=== PATIENT | male | born 1965 | race Caucasian/White ===

== ENCOUNTER 2021-10-05 23:21 | Emergency (ER) | payer MEDICARE, MEDICAID, SELFPAY ==
[2021-10-05 23:23] VITALS: BP 165/80; PULSE 89; RESP 22; TEMP 36.4; O2SAT 99; BMI 23.3
--- NOTE | 2021-10-06 00:05 | EX.ED.SAOD ---
HPI History of Present Illness Chief Complaint: Substance Abuse Informant: patient Onset/Context/Timing Onset: Today and Hours Context: Gradual Onset Timing: Continuous Current Severity: Moderate Maximum Severity: Moderate Associated Symptoms Associated Symptoms: Negative for vomiting*, diarrhea*, fever*, rash*, seizure, palpatations or trauma Narrative Narrative: 56-year-old male has a history of substance abuse. Today he snorted some fentanyl about 8 hours later someone gave him a Suboxone which he took which put him in withdrawal. Now he is having pain and cramping in his upper and lower extremities. He denies any recent illness. He denies any fever or chills. He denies any nausea, vomiting or diarrhea. He does not want detox. Prior similar symptoms: No Recent Illness/Hospitalization: No PFSH PFSH Medical History COPD (chronic obstructive pulmonary disease) Depression Substance abuse Allergy/AdvReac Type Severity Reaction Status Date / Time No Known Allergies Allergy Verified 10/06/21 01:03 Social History Smoking Status: Current every day smoker tobacco type: cigarettes ROS ROS ED ROS Narrative Upper and lower extremity cramping after taking Suboxone after using fentanyl. Review of Systems ROS Unobtainable: Denies due to encephalopathy Constitutional Constitutional ED: Denies chills or fever(s) Eyes Eyes: Denies blurry vision ENT ENT ED: Denies ear pain, rhinorrhea or sore throat Cardiovascular Cardiovascular: Denies chest pain Respiratory/Chest Respiratory/Chest: Denies cough or dyspnea Gastrointestinal Gastrointestinal: Denies abdominal pain, constipation, diarrhea, melena, nausea or vomiting Genitourinary Genitourinary ED: Denies dysuria Musculoskeletal Musculoskeletal: Reports arthralgias and myalgias Integumentary Denies abscess or Abrasions Neurologic Neurologic: Denies headache(s) Psychiatric Psychiatric: Denies anxiety Endocrine Endocrinology: Denies cold intolerance Hematologic/Lymphatic Hematologic/Lymphatic: Denies easy bleeding Allergic/Immunologic Allergic/Immunologic ED: Denies mouth swelling EXAM Physical Exam Narrative Exam Narrative: 56-year-old male complaint cramping his upper and lower extremities. Vital signs are stable afebrile. Pulse ox 9 9% on room air no hypoxia. H EENT exam unremarkable. Moist remembers. Neck nontender. Lungs are clear. Heart regular rhythm rate about 90 no murmur. Chest were nontender. Abdomen soft nontender. Moving all 4 extremities. Equal symmetrical radial pulses. Calves are nontender without edema or cords. Normal range of motion both upper and lower extremities. Normal motor strength. No deformities. No cellulitis. Neurologically is awake and alert. No focal motor deficits. Const Vital Signs: 10/05/21 23:23 Temperature 97.6 F L Temperature Source Temporal Pulse Rate 89 Respiratory Rate 22 H Blood Pressure 165/80 H Blood Pressure Mean 108 Pulse Ox 99 Oxygen Delivery Method Room Air Positive well nourished and well developed; Negative for obese, cachectic, contractures or unkempt General Appearance ED: well developed and NAD; Negative for unkempt, cachectic, contractures or pallor Nutritional Appearance: Negative for cachectic or obese HEENT Reports moist mucous membranes; Denies TM's clear atraumatic; Negative for trauma Tympanic Membrane ED: Negative for TM's clear Eyes PERRL and EOMs intact bilaterally General Eye ED: Negative for pale conjunctiva or scleral icterus Neck no lymphadenopathy, supple and no JVD Thyroid: Negative for tender Lymph Lymphatic: no lymphadenopathy noted; Negative for lymphadenopathy or other Chest Wall inspection of chest normal and palpation of chest normal Chest: Negative for other Resp normal respiratory effort and clear to auscultation bilaterally Effort and Inspection: Negative for retractions or pain with movement Auscultation: Negative for rales, rhonchi, wheezes or diminished lung sounds Cardio regular rate, regular rhythm, S1 normal heart sound, S2 normal heart sound and no murmurs Rate: Negative for bradycardia Rhythm: Negative for abnormal rhythm Bruits: Negative for other GI soft to palpation, non-tender, non-distended and no masses Inspection: Negative for abdominal distention Auscultation: Negative for hyperactive bowel sounds or hypoactive bowel sounds Palpation: Negative for tender, guarding, rigid or hepatomegaly Back/Spine no CVA tenderness General Back: Negative for CVA tenderness Cervical Spine: Negative for cervical spine tenderness Thoracic Spine / Upper Back: Negative for thoracic spinal tenderness Lumbar Spine / Lower Back: Negative for lumbar spinal tenderness Coccyx: Negative for swelling Extremity General Extremety ED: Negative for edema or tenderness General Extremity: Negative for edema Neuro oriented x3 and CN's II-XII intact bilaterally Sensorium / Orientation: alert, oriented to person, oriented to place and oriented to time; Negative for confused, lethargic or stuporous Speech: speech normal Motor Exam: strength 5/5 throughout Psych mental status grossly normal and thought process normal Appearance: Negative for unkempt Attitude: No belligerent and agitated Mood & Affect: anxious; Negative for depressed Skin General Skin Exam: Negative for jaundice or pallor Lesions: no lesions Rashes: no rashes Trauma: Negative for abrasion MDM MDM MDM Narrative Medical decision making narrative: 56-year-old male history of drug abuse. Started fentanyl today then used Suboxone when she did not realize or put them in no withdrawal. He is having withdrawal symptoms with diffuse cramping. He will be treated IV fluids and Ativan. His exam otherwise is unremarkable. Patient doing well on repeat exam at 1:30 AM. He was up walking in the hallway. He was feeling better with the IV Ativan. He requested a second dose he was given p.o. Ativan. Before I could even going discussed with him his discharge instructions he walked out before being discharged. Discharge Plan Triage Chief Complaint: Substance Abuse ED Provider: Don Cintron Dx/Rx/DC Orders Clinical Impression: Acute drug withdrawal syndrome, Active substance abuse Instructions: ED Opioid Withdrawal Primary Care Provider: Slava Steele Referrals: Slava Steele MD [Primary Care Provider] - As soon as possible [facility] [Non-Staff] - As soon as possible Disposition Disposition: Home, Self Care Discharge Date/Time: 10/06/21 01:42
[2021-10-06] MEDS: LORazepam 2 MG/ML Syringe 1 MG IV (00:47)
[2021-10-06] MEDS: 0.9% Normal Saline 1,000 ML 999 ML IV (00:49)
--- NOTE | 2021-10-06 01:00 | ED.RN ---
PT REMOVED HIS OWN IV.
[2021-10-06] MEDS: LORazepam 1 MG Tablet PO (01:38)
== END 2021-10-06 01:42 | disposition home or self-care (01) ==
PROVIDERS: Emergency Provider Emergency Medicine; PCP Family Medicine; Visit Provider Emergency Medicine
DX: F11.13 Opioid abuse with withdrawal (principal); F17.210 Nicotine dependence, cigarettes, uncomplicated
CPT/HCPCS: 96374; 99283; J7030; A4216

== ENCOUNTER 2024-01-13 16:21 | Emergency (ER) | payer MEDICARE, MEDICAID, SELFPAY ==
[2024-01-13 16:25] VITALS: PULSE 96; RESP 24; TEMP 36.2; O2SAT 97
[2024-01-13] MEDS: LORazepam 2 MG/ML Syringe 1 MG IV (18:08)
[2024-01-13 18:22] VITALS: BP 99/68; PULSE 70; RESP 14; O2SAT 95
--- NOTE | 2024-01-13 18:23 | EDS_ITS ---
HPI History of Present Illness Chief Complaint: Poisoning Detail of Chief Complaint: Opiate withdrawal/poisoning Informant: patient Onset/Context/Timing Onset: Today Context: Sudden Onset Timing: Continuous Quality: Patient took a friend's pill for pain and had her reaction. Location: Patient is on methadone and the pill he received was Suboxone Current Severity: Moderate Worsened by: Taking Suboxone while on opiate Relieved by: Nothing Associated Symptoms Associated Symptoms: Tremors, palpitations, diaphoresis, nausea and pallor Narrative Narrative: Patient is a 58-year-old male. He is on methadone. He was playing football with friends. He sustained an injury. Friend stated he had something to help him with pain. He did not ask what he was given. Patient is on methadone. It was determined that patient received Suboxone. Patient is having opiate withdrawal symptoms presently. He has no other complaints. He states I need Ativan to calm down Prior similar symptoms: Yes Recent Illness/Hospitalization: No PFSH PFSH Medical History COPD (chronic obstructive pulmonary disease) Depression Substance abuse Allergy/AdvReac Type Severity Reaction Status Date / Time No Known Allergies Allergy Verified 01/13/24 16:24 Social History Smoking Status: Current every day smoker tobacco type: cigarettes ROS ROS ED Constitutional Constitutional ED: Reports sweats; Denies chills, fever(s), subjective or weight loss Eyes Eyes: Denies blurry vision or change in vision ENT ENT ED: Denies ear pain or rhinorrhea Cardiovascular Cardiovascular: Reports palpitations and racing heartbeat; Denies chest pain Respiratory/Chest Respiratory/Chest: Denies cough, dyspnea or dyspnea on exertion Gastrointestinal Gastrointestinal: Reports nausea; Denies diarrhea or vomiting Musculoskeletal Musculoskeletal: Denies arthralgias or myalgias Integumentary Denies rash Neurologic Neurologic: Denies paresthesias or weakness Psychiatric Psychiatric: Reports anxiety Endocrine Endocrinology: Denies cold intolerance or heat intolerance Hematologic/Lymphatic Hematologic/Lymphatic: Reports systems reviewed and no addt'l complaints, except as documented EXAM Physical Exam Const Vital Signs: 01/13/24 16:25 01/13/24 17:22 01/13/24 18:22 Temperature 97.2 F L Temperature Source Temporal Pulse Rate 96 70 Respiratory Rate 24 H 14 Respiratory Effort Normal Respiratory Pattern Normal Blood Pressure 99/68 Blood Pressure Mean 78 Pulse Ox 97 95 Oxygen Delivery Method Room Air Room Air Positive well nourished Constitutional Narrative: Patient looks older than reported age. He is diaphoretic and pale. General Appearance ED: diaphoretic; Negative for cyanotic or NAD HEENT Reports moist mucous membranes HEENT Narrative: Head is atraumatic no cephalic. Ears normal. Nares patent. Posterior pharynx is normal. Eyes PERRL and EOMs intact bilaterally Eyes Narrative: There is no nystagmus. General Eye ED: Negative for pale conjunctiva or scleral icterus Neck no lymphadenopathy, supple and no JVD Chest Wall inspection of chest normal and palpation of chest normal Resp normal respiratory effort and clear to auscultation bilaterally Cardio regular rate, regular rhythm, S1 normal heart sound, S2 normal heart sound and no murmurs GI normal to inspection, nondistended, normoactive bowel sounds, non-tender, non- distended and no masses; Negative for hepatosplenomegaly Back/Spine no CVA tenderness Extremity normal to inspection General Extremety ED: Negative for edema or tenderness General Extremity: Negative for edema Neuro oriented x3, CN's II-XII intact bilaterally and no sensory deficits noted Neuro Narrative: Patient is hyperreflexic. There is 2-3 beats of nonsustained clonus at the ankles. Negative Babinski sign Motor Exam: strength 5/5 throughout Psych Mood & Affect: anxious Skin Skin Narrative: Patient is diaphoretic and pale. MDM MDM MDM Narrative Medical decision making narrative: Patient was placed on monitor. Is made NPO. IV was established and 1 mg of Ativan was ordered. Will reassess in 60+ minutes. Treatment and Re-Evaluation :: Patient was reassessed at 1850 and 1915. He is no longer jittery. He is no longer tachycardic. His heart rates now in the 60s. He states he feels much better. Will discharge to home. Discharge Plan Triage Chief Complaint: Poisoning ED Provider: Satya Najera Dx/Rx/DC Orders Clinical Impression: Opiate withdrawal, Adverse drug reaction Primary Care Provider: Slava Steele Referrals: Slava Steele MD [Primary Care Provider] - As Needed Activity Restrictions/Additional Instructions: You should not take anyone else's medicine especially since you are on methadone. Print Language: [place]an Disposition Disposition: Home, Self Care
--- NOTE | 2024-01-13 19:30 | ED.RN ---
Dominik [phone]
== END 2024-01-13 19:31 | disposition home or self-care (01) ==
PROVIDERS: Emergency Provider Emergency Medicine; PCP Family Medicine; Visit Provider Emergency Medicine
DX: F11.23 Opioid dependence with withdrawal (principal); J44.9 Chronic obstructive pulmonary disease, unspecified; F17.210 Nicotine dependence, cigarettes, uncomplicated
CPT/HCPCS: 96374; 99283

== ENCOUNTER 2024-06-15 23:02 | Outpatient (REF) | payer SELFPAY ==
[2024-06-15 23:03] VITALS: BP 120/76; PULSE 66; RESP 18; TEMP 36.8; O2SAT 95; BMI 30.9
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
[2024-06-15 23:06] VITALS: O2SAT 95
[2024-06-15] MEDS: Naloxone 2 MG/2 ML Syringe NASAL (23:11)
[2024-06-15 23:27] LABS: Absolute Lymphocyte Count 2.35 X10^3/uL (0.83-4.51); Absolute Neutrophil Count 4.5 X10^3/uL (2.0-7.7); Basophil# 0.09 X10^3/uL; Basophil% 1.1 % (0-1); Eosinophil# 0.71 X10^3/uL; Eosinophils% 8.6 % (0-5); Hematocrit 40.6 % (40-54); Hemoglobin 13.9 g/dL (13.0-16.5); Lymphocyte # 2.35 X10^3/ul (0.83-4.51); Lymphocyte % 28.6 % (19-41); Mean Corp Hgb Conc 34.2 g/dL (32-36); Mean Corpuscular Hgb 34.7 pg (27.0-32.0); Mean Corpuscular Volume 101.2 fL (80-94); Mean Platelet Vol. 10.3 fl (6.2-12.0); Monocyte# 0.51 X10^3/uL; Monocyte% 6.2 % (0-10); NRBC Flagged by Analyzer 0 % (0-5); Neutrophil # 4.49 X10^3/uL (2.7-7.7); Neutrophil % 54.6 % (47-70); POSITIVE MORPHOLOGY YES; Platelet Count 171 K/mm3 (150-450); RBC Distribution Width CV 13.8 % (11.6-14.6); Red Blood Count 4.01 M/mm3 (4.6-6.2); White Blood Count 8.2 K/mm3 (4.4-11.0)
[2024-06-15 23:30] LABS: Differential Indicated SCAN CRITERIA MET
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
[2024-06-16 00:15] VITALS: BP 117/84; PULSE 71; RESP 18; TEMP 36.1; O2SAT 94
[2024-06-16 00:16] LABS: Alcohol, Blood (Medical)-Serum < 10.1 mg/dL (<=10.0)
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
[2024-06-16 00:17] LABS: Anion Gap 13 (5-15); BUN 37 mg/dL (4-19); BUN/Creat Ratio 47.1 RATIO (10-20); Calcium,Total 9.7 mg/dL (7.6-11.0); Carbon Dioxide 22.7 mmol/L (21.0-32.0); Chloride 103 mmol/L (98-108); Creatinine, Serum 0.78 mg/dL (0.70-1.20); EST Glomerular Filtration Rate 103 (>60); Estimated Creatinine Clearance 113.83 ml/min (50-250); Glucose 110 mg/dL (70-99); Potassium 3.8 mmol/L (3.3-5.1); Sodium Level 139 mmol/L (133-145)
[2024-06-16 00:23] LABS: Amphetamine Urine PRESUMPTIVE POSITIVE (<1000 ng/mL); Barbiturate Urine NEGATIVE (< 200 ng/mL); Benzodiazepine Urine PRESUMPTIVE POSITIVE (< 200 ng/mL); Buprenorphine Urine NEGATIVE (< 200 ng/mL); Cocaine Urine NEGATIVE (< 300 ng/mL); Fentanyl, Urine NEGATIVE; Methadone Urine PRESUMPTIVE POSITIVE (< 300 ng/mL); Opiates Urine NEGATIVE (< 300 ng/mL); Oxycodone, Urine NEGATIVE (< 100 ng/mL); PCP Urine NEGATIVE (< 25 ng/mL); THC Urine PRESUMPTIVE POSITIVE (< 50 ng/mL)
[2024-06-16 00:26] LABS: Atypical Lymphocyte 1+ %; Platelet Estimate ADEQUATE (ADEQ); Red Cell Morphology NORM C+C NORMAL (NORM C&C)
== END 2024-06-16 00:15 ==
LOC: EDREF 23:02
PROVIDERS: PCP Family Medicine; Visit Provider Emergency Medicine
DX: T40.2X1A Poisoning by other opioids, accidental (unintentional), initial encounter (principal); J44.9 Chronic obstructive pulmonary disease, unspecified; R41.82 Altered mental status, unspecified; F32.A Depression, unspecified; V89.2XXA Person injured in unspecified motor-vehicle accident, traffic, initial encounter; F17.210 Nicotine dependence, cigarettes, uncomplicated
CPT/HCPCS: 70450; 72125; 80048; 80307; 82077; 85025; A4216

== ENCOUNTER 2024-06-16 10:00 | Emergency (ER) | payer MEDICARE, OTHER, SELFPAY ==
[2024-06-16 10:01] VITALS: BP 110/19; PULSE 68; RESP 17; TEMP 36.6; O2SAT 93; BMI 30.9
--- NOTE | 2024-06-16 11:06 | EKG12_ITS ---
Test Reason : ALT LOC Blood Pressure : */* mmHG Vent. Rate : 60 BPM Atrial Rate : 60 BPM P-R Int : 162 ms QRS Dur : 94 ms QT Int : 480 ms P-R-T Axes : 32 40 62 degrees QTcB Int : 480 ms Normal sinus rhythm Nonspecific T wave abnormality Prolonged QT Abnormal ECG [employer] [facility] Confirmed by Onel Scales ([id number]), brands editor SANYA MURPHY ([id number]) on 06/18/2024 12:24:15 PM Referred By: Confirmed By: Onel Scales
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
[2024-06-16] MEDS: Naloxone 0.4 MG/ML Syringe IV (11:26)
[2024-06-16 11:27] LABS: Absolute Lymphocyte Count 1.84 X10^3/uL (0.83-4.51); Absolute Neutrophil Count 4.4 X10^3/uL (2.0-7.7); Basophil# 0.07 X10^3/uL; Basophil% 0.9 % (0-1); Eosinophil# 0.59 X10^3/uL; Eosinophils% 7.8 % (0-5); Hemoglobin 13.5 g/dL (13.0-16.5); Lymphocyte # 1.84 X10^3/ul (0.83-4.51); Lymphocyte % 24.5 % (19-41); Mean Corp Hgb Conc 33.8 g/dL (32-36); Mean Corpuscular Hgb 34.2 pg (27.0-32.0); Mean Corpuscular Volume 101.3 fL (80-94); Mean Platelet Vol. 10.7 fl (6.2-12.0); Monocyte# 0.53 X10^3/uL; NRBC Flagged by Analyzer 0 % (0-5); Neutrophil # 4.43 X10^3/uL (2.7-7.7); Platelet Count 163 K/mm3 (150-450); RBC Distribution Width CV 13.7 % (11.6-14.6); RBC Distribution Width SD 51.6 fl (35.1-43.9); Red Blood Count 3.95 M/mm3 (4.6-6.2); White Blood Count 7.5 K/mm3 (4.4-11.0)
--- NOTE | 2024-06-16 11:30 | RAD_ITS ---
PROCEDURE: CHEST 1 VIEW (PORTABLE), 06/16/2024 REASON FOR EXAM: AMS TECHNIQUE: PA and lateral views of the chest were obtained. COMPARISON: None FINDINGS: Heart: Unremarkable. Mediastinum: Mild widening of the RIGHT paratracheal stripe could projectional, or related to vascular prominence, mediastinal lipomatosis, mediastinal lymphadenopathy, or other mediastinal process. Lungs/pleura: Ill-defined streaky bibasilar opacities greatest medially. Platelike likely atelectasis/scarring in the lateral LEFT lung base.. No pleural effusion or visible pneumothorax. Bones: Old LEFT rib fractures. Lines and support devices: None. Other: None. RAD/Chest 1 View (Portable) IMPRESSION: 1. Mild bibasilar airspace disease may reflect atelectasis/scarring or pneumoni a in the absence of prior exams to establish chronicity. Follow-up to radiographic resolution recommended. 2. Recommend outpatient CT chest for mediastinal findings, ideally with IV cont rast, unless outside imaging available to establish long-term stability or further delineate. 3. Additional description as above. Reading Location: [id number]
[2024-06-16 11:34] LABS: Allen Test Positive; Base Excess 0 mmol/L (-2 to +2); Bicarbonate 25.3 mmol/L (22-26); Blood Gas Specimen Type ART; Mode Not entered; O2 Delivery Device Cannula; PO2 67 mmHG (75-100); SITE R Radial; SO2 92 % (95-99); Total Carbon Dioxide 27 mmol/L; pCO2 44.9 mmHg (35-45); pH 7.36 (7.35-7.45)
[2024-06-16 11:46] LABS: Alcohol, Blood (Medical)-Serum < 10.1 mg/dL (<=10.0)
[2024-06-16 11:53] LABS: ALB/GLOB Ratio 1.2 RATIO (0.9-2.4); AST(SGOT) 55 U/L (<=37); Alanine Aminotransfer ALT/SGPT 47 U/L (<=46); Alkaline Phosphatase 130 U/L (40-129); Anion Gap 11 (5-15); BUN 33 mg/dL (4-19); BUN/Creat Ratio 54.6 RATIO (10-20); Calcium,Total 9.2 mg/dL (7.6-11.0); Carbon Dioxide 19.8 mmol/L (21.0-32.0); Chloride 107 mmol/L (98-108); EST Glomerular Filtration Rate 112 (>60); Estimated Creatinine Clearance 147.98 ml/min (50-250); Globulin 3.5 g/dL (2.2-4.2); Glucose 97 mg/dL (70-99); Potassium 4.4 mmol/L (3.3-5.1); Protein, Total 7.5 g/dL (5.9-8.4); Sodium Level 138 mmol/L (133-145); Total Bilirubin 0.57 mg/dL (0.00-1.30)
[2024-06-16] MEDS: 0.9% Normal Saline (1000mL) 1,000 ML 999 ML IV (12:00)
[2024-06-16 12:09] VITALS: BP 151/98; PULSE 74; RESP 17; O2SAT 96
[2024-06-16 13:15] VITALS: BP 151/98; PULSE 76; RESP 17; TEMP 36.3; O2SAT 98
== END 2024-06-16 13:16 | disposition home or self-care (01) ==
PROVIDERS: Emergency Provider Emergency Medicine; PCP Family Medicine; Visit Provider Emergency Medicine
DX: R41.82 Altered mental status, unspecified (principal); F19.10 Other psychoactive substance abuse, uncomplicated; J44.9 Chronic obstructive pulmonary disease, unspecified; F17.210 Nicotine dependence, cigarettes, uncomplicated
CPT/HCPCS: 36600; 71045; 80053; 82077; 82803; 85025; 93005; 96361; 96374; 99285; A4216; J2310